=== PATIENT | male | born 1980 | race Caucasian/White ===

== ENCOUNTER → 2021-11-12 | Outpatient (CLI) | payer BC ==
--- NOTE | 2021-11-12 12:03 | CT ---
EXAMINATION TYPE: CT chest w con DATE OF EXAM: 11/12/2021 COMPARISON: None available HISTORY: Chest pain CT DLP: 662 mGycm Automated exposure control for dose reduction was used. TECHNIQUE: CT scan of the chest is performed with IV Contrast, patient injected with 100 ml mL of Isovue 300. FINDINGS: LUNGS: Unremarkable visualized portion of the lungs with no definite nodule or mass. Patent central a irways. No pleural effusion or pneumothorax. MEDIASTINUM: 10 mm subcarinal lymph node, nonspecific. Other scattered millimetric bilateral axillary , hilar and mediastinal lymph nodes. No other pathologically enlarged lymph nodes in the chest. No gr oss cardiomegaly. No pulmonary artery dilatation. No major or central pulmonary embolism. Patent zina r mediastinal vessels with no significant atherosclerotic calcifications. No pericardial effusion or pneumomediastinum. OTHER: Questionable hepatic steatosis. No aggressive bone lesion. No definite rib fracture identifie d. IMPRESSION: No definite acute abnormality identified in the chest to explain the patient's pain. Incidental findi ngs as described above.
== END | disposition home or self-care (01) ==
LOC: RADCTMAIN 09:50
PROVIDERS: ATTEND Nurse Practitioner Family
DX: R07.1 Chest pain on breathing (principal); M54.9 Dorsalgia, unspecified
CPT/HCPCS: 71260; Q9967